=== PATIENT | female | born 1960 | race Caucasian/White ===

== ENCOUNTER → 2017-08-31 12:55 | Outpatient (CLI) | payer OTHER, SELFPAY ==
--- NOTE | 2017-08-31 | DI.MG.S_ITS ---
BILATERAL DIGITAL SCREENING MAMMOGRAM 3D/2D WITH CAD: 08/31/2017 CLINICAL: Routine screening. Family history of breast cancer. Comparison is made to exams dated: 07/11/2016 mammogram, 05/25/2015 mammogram, and 03/10/2014 mammogram - [facility]. The tissue of both breasts is heterogeneously dense. This may lower the sensitivity of mammography. Current study was also evaluated with a Computer Aided Detection (CAD) system. There are post operative findings in both breasts. No significant masses, calcifications, or other findings are seen in either breast. There has been no significant interval change. IMPRESSION: NEGATIVE There is no mammographic evidence of malignancy. A 1 year screening mammogram is recommended. This exam was interpreted at Station ID: [id number]. NOTE: For mammograms, a report in lay terms will be sent to the patient. Approximately 15% of breast malignancies will not be visualized mammographically. In the management of a palpable breast mass, a negative mammogram must not discourage biopsy of a clinically suspicious lesion. Electronically Signed By: Sarkis stein/roger:08/31/2017 15:37:53 letter sent: Normal Exam ACR BI-RADS Category 1: Negative 3341F
== END ==
PROVIDERS: PCP Nurse Practitioner; Visit Provider Family Medicine
DX: Z12.31 Encounter for screening mammogram for malignant neoplasm of breast (principal)
CPT/HCPCS: 77063; 77067

== ENCOUNTER → 2018-03-04 15:47 | Outpatient (CLI) | payer OTHER, SELFPAY ==
[2018-04-01 21:16] LABS: Fecal Immunochemical Test NOT DETECTED
== END ==
PROVIDERS: Visit Provider Family Medicine
DX: Z12.11 Encounter for screening for malignant neoplasm of colon (principal)
CPT/HCPCS: 82274

== ENCOUNTER → 2018-03-29 13:53 | Outpatient (CLI) | payer OTHER, SELFPAY | PROVIDERS: PCP Family Medicine; Visit Provider Family Medicine | DX: Z13.9 Encounter for screening, unspecified (principal) ==

== ENCOUNTER → 2018-10-08 15:18 | Outpatient (CLI) | payer OTHER, SELFPAY ==
--- NOTE | 2018-10-08 | DI.MG.S_ITS ---
BILATERAL DIGITAL SCREENING MAMMOGRAM 3D/2D WITH CAD: 10/08/2018 CLINICAL: Routine screening. Family history of breast cancer. Comparison is made to exams dated: 08/31/2017 mammogram, 07/11/2016 mammogram, and 05/25/2015 mammogram - [facility]. The tissue of both breasts is heterogeneously dense. This may lower the sensitivity of mammography. Current study was also evaluated with a Computer Aided Detection (CAD) system. There are benign post operative findings in both breasts. No significant masses, calcifications, or other findings are seen in either breast. There has been no significant interval change. IMPRESSION: There is no mammographic evidence of malignancy. A 1 year screening mammogram is recommended. This exam was interpreted at Station ID: [id number]. NOTE: For mammograms, a report in lay terms will be sent to the patient. Approximately 15% of breast malignancies will not be visualized mammographically. In the management of a palpable breast mass, a negative mammogram must not discourage biopsy of a clinically suspicious lesion. Electronically Signed By: Benjie figueredo/roger:10/08/2018 16:18:59 letter sent: Normal Exam ACR BI-RADS Category 2: Benign Finding(s) 3342F
== END ==
PROVIDERS: PCP Family Medicine; Visit Provider Family Medicine
DX: Z12.31 Encounter for screening mammogram for malignant neoplasm of breast (principal); Z80.3 Family history of malignant neoplasm of breast
CPT/HCPCS: 77063; 77067

== ENCOUNTER → 2018-10-30 16:29 | Outpatient (RCR) | payer OTHER, SELFPAY ==
--- NOTE | 2017-07-11 13:50 | PT.OIE ---
Current Diagnoses Other specified disorders of muscle (07/10/17) Past Surgical History Status post breast biopsy Status post tubal ligation Provider Visit Care Team Role Provider Type LAYTON Santiago Primary Care Provider Advanced Practioner Clinician Specialty: Medical Address: [address] [place] [address], [id number] Email: Eli Downs MD Attending Provider Physician Specialty: BELT LACER Address: [address] [place] [address], [id number] Email: [email or web address] Physical Therapy Initial Evaluation PT-OP-A Visit Information Start: 07/11/17 13:20 Freq: Status: Active Protocol: Document 07/11/17 13:21 [facility] (Rec: 07/11/17 13:34 [facility] [email or web address]) Out-Patient Physical Therapy Visit Information Visit Information Visit Type Initial Evaluation Visit Start Time 16:00 Visit Stop Time 16:45 Total Visit Minutes 45 Visit Number 1 Number of PUTTY TINTER MAKER Visits 0 Evaluation Information Evaluation Date 07/10/17 PT-OP-B Current Condition Start: 07/11/17 13:20 Freq: Status: Active Protocol: Document 07/11/17 13:21 [facility] (Rec: 07/11/17 13:34 [facility] [email or web address]) Current Condition History of Current Condition Onset Date symptoms began approximately 1 year ago Current Complaints constant pelvic pressure as if sitting on a ball, exercise ability limited History of Current Condition Susi is a 56 year old postmenapausal woman referred with uterine prolapse, she has also recently had a vaginal yeast infection which she is still treating. She has not had any urinary tract infection symptoms and no problems with bowel movements. She has a history of 2 vaginal deliveries with the last delivery she notes that she tore quite a bit., hx of breast biopsy, tubal ligation, and foot surgery Treatment Goals Patient/Caregiver Goals Susi's goals include improving strength of her pelvic floor and decrease pelvic pressure from the uterine prolapse Prior Functional Status Baseline Function- ADL's Independent Baseline Function- Mobility Independent Baseline Function- Recreation/Hobbies the patient liked to run but she has not been able to run or walk greater than 1/2 mile in the past year Current Functional Impairments (Reported) Functional Limitations- Recreation/ limited in walking distance to Hobbies 1/2 mile due to increased pelvic pressure, unable to run PT-OP-C Subjective Start: 07/11/17 13:20 Freq: Status: Active Protocol: Document 07/11/17 13:21 [facility] (Rec: 07/11/17 13:34 [facility] [email or web address]) OP-PT Subjective Patient Comments Patient Comments Susi describes constant pressure from her uterine prolapse that is like sitting on a ball. She notes she is frustrated she is unable to exercise due to her prolapse. She denies any complaints of urinary incontinence or fecal incontinence and reports her bowel movements are normal and daily. PT-OP-I Pelvic Floor Start: 07/11/17 13:34 Freq: Status: Active Protocol: Document 07/11/17 13:35 [facility] (Rec: 07/11/17 13:50 [facility] [email or web address]) Pelvic Floor Assessment Urine Pelvic Floor Surgery No Urinary Symptoms Urge Sensation Other Urinary Symptoms urgency is only on occasion Pelvic Clock Pelvic Clock 12-3 Atrophy Pelvic Clock 3-6 Atrophy Guarding Tightness Pelvic Clock 6-9 Atrophy Guarding Tightness Pelvic Clock 9-12 Atrophy Prolapse Uterine Prolapse Grade 2 Perineal Descent Resting Present Bearing Present SEMG (uV) Baseline 2 10 Second Contraction 10.8 Recruitment Pattern Fair Relaxation Good Holding Fair Stability of Hold Fair SEMG Stability of Rest Good Contraction Ability Voluntary Contraction Weak Manual Muscle Testing Left 2 Manual Muscle Testing Right 2 Manual Muscle Testing Anterior 3 Manual Muscle Testing Posterior 2 Muscle Endurance (Seconds) 5 PT-OP-Q Treatments Start: 07/11/17 13:34 Freq: Status: Active Protocol: Document 07/11/17 13:35 [facility] (Rec: 07/11/17 13:50 [facility] [email or web address]) Therapeutic Exercises Supine Exercises 1 Supine Exercise Name roll outs with theraband Side bilateral Resistance level 1 theraband Reps/Minutes 3 sets of 10 reps Comments hip ER strengthening Neuro Re-Education Treatment Other Activities 1 Details EMG biofeedback with neuro re- education of the levator ani muscle group Reps/Duration 10 second hold time x 10 reps Comments Susi is able to facilitate all parts of her levator ani but the contraction is weak and endurance is at 5 seconds. EMG biofeedback was used to provide visual input and neuro re-education on pelvic floor activation. Susi tolerated this well. PT-OP-T Assessment and Plan Start: 07/11/17 13:34 Freq: Status: Active Protocol: Document 07/11/17 13:35 [facility] (Rec: 07/11/17 13:50 [facility] [email or web address]) Physical Therapy Assessment Rehab Potential Rehabilitation Potential Excellent Evaluation Complexity Number of Personal Factors/Comorbidities 0 Number of Body Systems Impaired 1-2 Clinical Presentation at Evaluation Stable Impairments Impairments Pain Soft Tissue Mobility Strength Tone Other Impairments pelvic organ prolapse with pelvic pressure Goals Four Impairment Susi is unable to walk greater than 1/2 mile due to pelvic pressure Apartment Property Manager Goal (LTG) Improve walking distance to 1 mile or greater without increased complaints of pelvic pressure LTG Duration 8 weeks Three Impairment complaints of pelvic pressure that is constant Snf Goal (LTG) Susi reports decreased complaints of pelvic pressue and no longer feels like she is sitting on a ball. LTG Duration 8 weeks Two Impairment decreased endurance of the pelvic floor Apartment Property Manager Goal (LTG) Improve endurance of the pelvic floor to 10 second hold time in supine and 5 second hold time standing LTG Duration 6 weeks One Impairment decreased strength of the Levator ani musculature Snf Goal (LTG) Improve strength of the pelvic floor to 4/5 or better of all portions of the levator ani with MMT LTG Duration 8 weeks Assessment Summary Assessment Susi presents to physical therapy today with signs and symptoms consistant with pelvic organ prolapse and pelvic floor weakness. She is able to facilitate all parts of her levator ani but is weakest in the lateral and posterior marsh. She is guarded on the left lateral wall and is unable to fully relax to baseline on EMG biofeedback. She has difficulty holding a pelvic floor contraction past 5 seconds. Treatment will emphasis pelvic floor strengthening, body mechanics training to avoid straining, function progression to dynamic upright movements. Susi is a good candidate for PT Physical Therapy Plan Frequency and Duration Frequency of Treatment 1x/Week Duration of Treatment 8 weeks Plan of Care Start Date 07/10/17 Plan of Care End Date 09/04/17 Therapeutic Interventions Therapeutic Interventions Home Exercise Program Neuromuscular Re-education Patient/Caregiver Education Self-Care/Home Management Therapeutic Exercises Modalities Biofeedback Other Therapeutic Interventions neuromuscular electrical stimulation Provider Signature Date
--- NOTE | 2017-07-11 13:53 | PT.OPPOC ---
Current Diagnoses Other specified disorders of muscle (07/10/17) Provider Visit Care Team Role Provider Type LAYTON Santiago Primary Care Provider Advanced Practioner Clinician Specialty: Medical Address: [address] [place] [address], [id number] Email: Eli Downs MD Attending Provider Physician Specialty: AMUSEMENT OR RECREATION CARD CHECKER Address: [address] [place] [address], [id number] Email: [email or web address] Plan Of Care PT-OP-T Assessment and Plan Start: 07/11/17 13:34 Freq: Status: Active Protocol: Document 07/11/17 13:35 [facility] (Rec: 07/11/17 13:50 [facility] [email or web address]) Physical Therapy Assessment Rehab Potential Rehabilitation Potential Excellent Evaluation Complexity Number of Personal Factors/Comorbidities 0 Number of Body Systems Impaired 1-2 Clinical Presentation at Evaluation Stable Impairments Impairments Pain Soft Tissue Mobility Strength Tone Other Impairments pelvic organ prolapse with pelvic pressure Goals Four Impairment Susi is unable to walk greater than 1/2 mile due to pelvic pressure Prison Goal (LTG) Improve walking distance to 1 mile or greater without increased complaints of pelvic pressure LTG Duration 8 weeks Three Impairment complaints of pelvic pressure that is constant Group Cio Goal (LTG) Susi reports decreased complaints of pelvic pressue and no longer feels like she is sitting on a ball. LTG Duration 8 weeks Two Impairment decreased endurance of the pelvic floor Prison Goal (LTG) Improve endurance of the pelvic floor to 10 second hold time in supine and 5 second hold time standing LTG Duration 6 weeks One Impairment decreased strength of the Levator ani musculature Group Cio Goal (LTG) Improve strength of the pelvic floor to 4/5 or better of all portions of the levator ani with MMT LTG Duration 8 weeks Assessment Summary Assessment Susi presents to physical therapy today with signs and symptoms consistant with pelvic organ prolapse and pelvic floor weakness. She is able to facilitate all parts of her levator ani but is weakest in the lateral and posterior marsh. She is guarded on the left lateral wall and is unable to fully relax to baseline on EMG biofeedback. She has difficulty holding a pelvic floor contraction past 5 seconds. Treatment will emphasis pelvic floor strengthening, body mechanics training to avoid straining, function progression to dynamic upright movements. Susi is a good candidate for PT Physical Therapy Plan Frequency and Duration Frequency of Treatment 1x/Week Duration of Treatment 8 weeks Plan of Care Start Date 07/10/17 Plan of Care End Date 09/04/17 Therapeutic Interventions Therapeutic Interventions Home Exercise Program Neuromuscular Re-education Patient/Caregiver Education Self-Care/Home Management Therapeutic Exercises Modalities Biofeedback Other Therapeutic Interventions neuromuscular electrical stimulation Plan of Care Dates Plan of Care Start Date 07/10/17 Plan of Care End Date 09/04/17 Please Sign and Return: I have reviewed this Plan of Care and certify that the skilled therapy services above are required to meet the patient???s needs. Physician Signature Date Printed Name and Credentials
--- NOTE | 2017-07-17 18:00 | PT.OTN ---
Current Diagnoses Other specified disorders of muscle (07/17/17) Physical Therapy Treatment Note PT-OP-A Visit Information Start: 07/11/17 13:20 Freq: Status: Active Protocol: Document 07/11/17 13:21 [facility] (Rec: 07/11/17 13:34 [facility] [email or web address] Out-Patient Physical Therapy Visit Information Visit Information Visit Type Initial Evaluation Visit Start Time 16:00 Visit Stop Time 16:45 Total Visit Minutes 45 Visit Number 1 Number of TEST DEVELOPMENT ENGINEER Visits 0 Evaluation Information Evaluation Date 07/10/17 PT-OP-B Current Condition Start: 07/11/17 13:20 Freq: Status: Active Protocol: Document 07/11/17 13:21 [facility] (Rec: 07/11/17 13:34 [facility] [email or web address] Current Condition History of Current Condition Onset Date symptoms began approximately 1 year ago Current Complaints constant pelvic pressure as if sitting on a ball, exercise ability limited History of Current Condition Susi is a 56 year old postmenapausal woman referred with uterine prolapse, she has also recently had a vaginal yeast infection which she is still treating. She has not had any urinary tract infection symptoms and no problems with bowel movements. She has a history of 2 vaginal deliveries with the last delivery she notes that she tore quite a bit., hx of breast biopsy, tubal ligation, and foot surgery Treatment Goals Patient/Caregiver Goals Susi's goals include improving strength of her pelvic floor and decrease pelvic pressure from the uterine prolapse Prior Functional Status Baseline Function- ADL's Independent Baseline Function- Mobility Independent Baseline Function- Recreation/Hobbies the patient liked to run but she has not been able to run or walk greater than 1/2 mile in the past year Current Functional Impairments (Reported) Functional Limitations- Recreation/ limited in walking distance to Hobbies 1/2 mile due to increased pelvic pressure, unable to run PT-OP-C Subjective Start: 07/11/17 13:20 Freq: Status: Active Protocol: Document 07/17/17 17:53 [facility] (Rec: 07/17/17 18:00 [facility] [email or web address] OP-PT Subjective Patient Comments Patient Comments Susi reports she has been trying to work on her exercises at home. She has not expereincedc pelvic cramin with exercises PT-OP-I Pelvic Floor Start: 07/11/17 13:34 Freq: Status: Active Protocol: Document 07/11/17 13:35 [facility] (Rec: 07/11/17 13:50 [facility] [email or web address]) Pelvic Floor Assessment Urine Pelvic Floor Surgery No Urinary Symptoms Urge Sensation Other Urinary Symptoms urgency is only on occasion Pelvic Clock Pelvic Clock 12-3 Atrophy Pelvic Clock 3-6 Atrophy Guarding Tightness Pelvic Clock 6-9 Atrophy Guarding Tightness Pelvic Clock 9-12 Atrophy Prolapse Uterine Prolapse Grade 2 Perineal Descent Resting Present Bearing Present SEMG (uV) Baseline 2 10 Second Contraction 10.8 Recruitment Pattern Fair Relaxation Good Holding Fair Stability of Hold Fair SEMG Stability of Rest Good Contraction Ability Voluntary Contraction Weak Manual Muscle Testing Left 2 Manual Muscle Testing Right 2 Manual Muscle Testing Anterior 3 Manual Muscle Testing Posterior 2 Muscle Endurance (Seconds) 5 PT-OP-Q Treatments Start: 07/11/17 13:34 Freq: Status: Active Protocol: Document 07/17/17 17:53 [facility] (Rec: 07/17/17 18:00 [facility] [email or web address]) Therapeutic Exercises Supine Exercises 4 Supine Exercise Name templates for eccentric control Reps/Minutes 8 min 3 Supine Exercise Name quick contractions Reps/Minutes 2 seconds on/off 2 Supine Exercise Name pelvic floor long holds Reps/Minutes 10 seconds on 10 seconds off 1 Supine Exercise Name roll outs with theraband Side bilateral Resistance level 1 theraband Reps/Minutes 3 sets of 10 reps Comments hip ER strengthening PT-OP-T Assessment and Plan Start: 07/11/17 13:34 Freq: Status: Active Protocol: Document 07/17/17 17:53 [facility] (Rec: 07/17/17 18:00 [facility] [email or web address]) Physical Therapy Assessment Assessment Summary Assessment Susi is tolerating all exercises well and has not been experiencing any cramping . Begin TA stabilization next visit and gradually work towards standing pelvic floor contractions Physical Therapy Plan Frequency and Duration Frequency of Treatment 1x/Week Duration of Treatment 8 weeks Plan of Care Start Date 07/10/17 Plan of Care End Date 09/04/17 Therapeutic Interventions Therapeutic Interventions Home Exercise Program Neuromuscular Re-education Patient/Caregiver Education Self-Care/Home Management Therapeutic Exercises Next Visit Focus/Plan Next Visit Plan work on beginning transverse abdominal stabilization next visit and revisit templates for eccentric control Please Sign and Return: I have reviewed this Plan of Care and certify that the skilled therapy services above are required to meet the patient???s needs. Physician Signature Date Printed Name and Credentials Clinical Instructor Signature Printed Name and Credentials
--- NOTE | 2017-07-31 17:12 | PT.OTN ---
Current Diagnoses Other specified disorders of muscle (07/31/17) Physical Therapy Treatment Note PT-OP-A Visit Information Start: 07/11/17 13:20 Freq: Status: Active Protocol: Document 07/31/17 17:05 [facility] (Rec: 07/31/17 17:12 [facility] [email or web address]) Out-Patient Physical Therapy Visit Information Visit Information Visit Type Treatment Note Visit Start Time 16:00 Visit Stop Time 16:45 Total Visit Minutes 45 Visit Number 3 Number of PLASTICS BENCH MECHANIC Visits 0 PT-OP-B Current Condition Start: 07/11/17 13:20 Freq: Status: Active Protocol: Document 07/11/17 13:21 [facility] (Rec: 07/11/17 13:34 [facility] [email or web address]) Current Condition History of Current Condition Onset Date symptoms began approximately 1 year ago Current Complaints constant pelvic pressure as if sitting on a ball, exercise ability limited History of Current Condition Susi is a 56 year old postmenapausal woman referred with uterine prolapse, she has also recently had a vaginal yeast infection which she is still treating. She has not had any urinary tract infection symptoms and no problems with bowel movements. She has a history of 2 vaginal deliveries with the last delivery she notes that she tore quite a bit., hx of breast biopsy, tubal ligation, and foot surgery Treatment Goals Patient/Caregiver Goals Susi's goals include improving strength of her pelvic floor and decrease pelvic pressure from the uterine prolapse Prior Functional Status Baseline Function- ADL's Independent Baseline Function- Mobility Independent Baseline Function- Recreation/Hobbies the patient liked to run but she has not been able to run or walk greater than 1/2 mile in the past year Current Functional Impairments (Reported) Functional Limitations- Recreation/ limited in walking distance to Hobbies 1/2 mile due to increased pelvic pressure, unable to run PT-OP-C Subjective Start: 07/11/17 13:20 Freq: Status: Active Protocol: Document 07/31/17 17:05 [facility] (Rec: 07/31/17 17:12 [facility] [email or web address]) OP-PT Subjective Patient Comments Patient Comments Susi notes that at times the exercises feel like they are helping her prolapse symptoms PT-OP-I Pelvic Floor Start: 07/11/17 13:34 Freq: Status: Active Protocol: Document 07/11/17 13:35 [facility] (Rec: 07/11/17 13:50 [facility] [email or web address]) Pelvic Floor Assessment Urine Pelvic Floor Surgery No Urinary Symptoms Urge Sensation Other Urinary Symptoms urgency is only on occasion Pelvic Clock Pelvic Clock 12-3 Atrophy Pelvic Clock 3-6 Atrophy Guarding Tightness Pelvic Clock 6-9 Atrophy Guarding Tightness Pelvic Clock 9-12 Atrophy Prolapse Uterine Prolapse Grade 2 Perineal Descent Resting Present Bearing Present SEMG (uV) Baseline 2 10 Second Contraction 10.8 Recruitment Pattern Fair Relaxation Good Holding Fair Stability of Hold Fair SEMG Stability of Rest Good Contraction Ability Voluntary Contraction Weak Manual Muscle Testing Left 2 Manual Muscle Testing Right 2 Manual Muscle Testing Anterior 3 Manual Muscle Testing Posterior 2 Muscle Endurance (Seconds) 5 PT-OP-Q Treatments Start: 07/11/17 13:34 Freq: Status: Active Protocol: Document 07/31/17 17:05 [facility] (Rec: 07/31/17 17:12 [facility] [email or web address]) Therapeutic Exercises Supine Exercises 7 Supine Exercise Name TA facilitation in supine 6 Supine Exercise Name ball squeeze Reps/Minutes 20 reps 5 Supine Exercise Name clam shells Reps/Minutes 3 sets of 10 reps 4 Supine Exercise Name templates for eccentric control Reps/Minutes 8 min 3 Supine Exercise Name quick contractions Reps/Minutes 2 seconds on/off 2 Supine Exercise Name pelvic floor long holds Reps/Minutes 10 seconds on 10 seconds off Other Exercises 2 Other Exercise Name quadraped TA facilitation 1 Other Exercise Name quadraped cat cow Reps/Minutes 10 reps PT-OP-T Assessment and Plan Start: 07/11/17 13:34 Freq: Status: Active Protocol: Document 07/31/17 17:05 [facility] (Rec: 07/31/17 17:12 [facility] [email or web address]) Physical Therapy Assessment Assessment Summary Assessment great increase in pelvic floor recruitment on EMG biofeedback today with average contraction increasing to 18. 8 uv and max contraction of 30 uv Physical Therapy Plan Frequency and Duration Frequency of Treatment 1x/Week Duration of Treatment 8 weeks Plan of Care Start Date 07/10/17 Plan of Care End Date 09/04/17 Therapeutic Interventions Therapeutic Interventions Home Exercise Program Neuromuscular Re-education Patient/Caregiver Education Self-Care/Home Management Therapeutic Exercises Next Visit Focus/Plan Next Visit Plan continue progressing TA stabilization and work towards strengthening in upright positions Please Sign and Return: I have reviewed this Plan of Care and certify that the skilled therapy services above are required to meet the patient?s needs. Physician Signature Date Printed Name and Credentials Clinical Instructor Signature Printed Name and Credentials
--- NOTE | 2017-08-08 12:51 | PT.OTN ---
Current Diagnoses Other specified disorders of muscle (08/07/17) Physical Therapy Treatment Note PT-OP-A Visit Information Start: 07/11/17 13:20 Freq: Status: Active Protocol: Document 08/07/17 16:00 [facility] (Rec: 08/08/17 12:51 [facility] [email or web address]) Out-Patient Physical Therapy Visit Information Visit Information Visit Type Treatment Note Visit Start Time 14:00 Visit Stop Time 14:45 Total Visit Minutes 45 Visit Number 4 Number of SUPERVISORY IT SPECIALIST Visits 0 PT-OP-B Current Condition Start: 07/11/17 13:20 Freq: Status: Active Protocol: Document 07/11/17 13:21 [facility] (Rec: 07/11/17 13:34 [facility] [email or web address]) Current Condition History of Current Condition Onset Date symptoms began approximately 1 year ago Current Complaints constant pelvic pressure as if sitting on a ball, exercise ability limited History of Current Condition Susi is a 56 year old postmenapausal woman referred with uterine prolapse, she has also recently had a vaginal yeast infection which she is still treating. She has not had any urinary tract infection symptoms and no problems with bowel movements. She has a history of 2 vaginal deliveries with the last delivery she notes that she tore quite a bit., hx of breast biopsy, tubal ligation, and foot surgery Treatment Goals Patient/Caregiver Goals Susi's goals include improving strength of her pelvic floor and decrease pelvic pressure from the uterine prolapse Prior Functional Status Baseline Function- ADL's Independent Baseline Function- Mobility Independent Baseline Function- Recreation/Hobbies the patient liked to run but she has not been able to run or walk greater than 1/2 mile in the past year Current Functional Impairments (Reported) Functional Limitations- Recreation/ limited in walking distance to Hobbies 1/2 mile due to increased pelvic pressure, unable to run PT-OP-C Subjective Start: 07/11/17 13:20 Freq: Status: Active Protocol: Document 08/07/17 16:00 [facility] (Rec: 08/08/17 12:51 [facility] [email or web address]) OP-PT Subjective Patient Comments Patient Comments Susi reports this has been a good week and she has not felt as much pelvic pressure. She want to start walking again PT-OP-I Pelvic Floor Start: 07/11/17 13:34 Freq: Status: Active Protocol: Document 07/11/17 13:35 [facility] (Rec: 07/11/17 13:50 [facility] [email or web address]) Pelvic Floor Assessment Urine Pelvic Floor Surgery No Urinary Symptoms Urge Sensation Other Urinary Symptoms urgency is only on occasion Pelvic Clock Pelvic Clock 12-3 Atrophy Pelvic Clock 3-6 Atrophy Guarding Tightness Pelvic Clock 6-9 Atrophy Guarding Tightness Pelvic Clock 9-12 Atrophy Prolapse Uterine Prolapse Grade 2 Perineal Descent Resting Present Bearing Present SEMG (uV) Baseline 2 10 Second Contraction 10.8 Recruitment Pattern Fair Relaxation Good Holding Fair Stability of Hold Fair SEMG Stability of Rest Good Contraction Ability Voluntary Contraction Weak Manual Muscle Testing Left 2 Manual Muscle Testing Right 2 Manual Muscle Testing Anterior 3 Manual Muscle Testing Posterior 2 Muscle Endurance (Seconds) 5 PT-OP-Q Treatments Start: 07/11/17 13:34 Freq: Status: Active Protocol: Document 08/07/17 16:00 [facility] (Rec: 08/08/17 12:51 [facility] [email or web address]) Therapeutic Exercises Supine Exercises 7 Supine Exercise Name TA facilitation in supine 6 Supine Exercise Name ball squeeze Reps/Minutes 20 reps 5 Supine Exercise Name clam shells Reps/Minutes 3 sets of 10 reps 4 Supine Exercise Name templates for eccentric control Reps/Minutes 8 min 3 Supine Exercise Name quick contractions Reps/Minutes 2 seconds on/off Comments improved resting tone 2 Supine Exercise Name pelvic floor long holds Reps/Minutes 10 seconds on 10 seconds off 1 Supine Exercise Name roll outs with theraband Side bilateral Resistance level 1 theraband Reps/Minutes 3 sets of 10 reps Comments hip ER strengthening Other Exercises 4 Other Exercise Name functional squats with pelvic floor activation 3 Other Exercise Name standing and sidelying hip abduction Reps/Minutes 2 x 10 2 Other Exercise Name quadraped TA facilitation 1 Other Exercise Name quadraped cat cow Reps/Minutes 10 reps PT-OP-T Assessment and Plan Start: 07/11/17 13:34 Freq: Status: Active Protocol: Document 08/07/17 16:00 [facility] (Rec: 08/08/17 12:51 [facility] [email or web address]) Physical Therapy Assessment Assessment Summary Assessment good tolerance today for addition of standing exercises and hip lateral strengthning Physical Therapy Plan Frequency and Duration Frequency of Treatment 1x/Week Duration of Treatment 8 weeks Plan of Care Start Date 07/10/17 Plan of Care End Date 09/04/17 Therapeutic Interventions Therapeutic Interventions Home Exercise Program Neuromuscular Re-education Patient/Caregiver Education Self-Care/Home Management Therapeutic Exercises Next Visit Focus/Plan Next Visit Plan continue progressing TA stabilization and work towards strengthening in upright positions Please Sign and Return: I have reviewed this Plan of Care and certify that the skilled therapy services above are required to meet the patient?s needs. Physician Signature Date Printed Name and Credentials Clinical Instructor Signature Printed Name and Credentials
--- NOTE | 2018-10-29 14:16 | PT.OPDS ---
Current Diagnoses Other specified disorders of muscle (08/14/17) Visit Care Team Role Provider Type LAYTON Santiago Primary Care Provider Advanced Community Integration Specialist Specialty: Medical Address: [address] [place] [address], [id number] Email: Eli Downs MD Attending Provider Physician Specialty: ADMINISTRATIVE LIBRARY ASSISTANT Address: [address] [place] [address], [id number] Email: [email or web address] Visit Number Visit Number 5 Discharge Summary PT-OP-B Current Condition Start: 07/11/17 13:20 Freq: Status: Active Protocol: Document 07/11/17 13:21 [facility] (Rec: 07/11/17 13:34 [facility] [email or web address]) Current Condition History of Current Condition Onset Date symptoms began approximately 1 year ago Current Complaints constant pelvic pressure as if sitting on a ball, exercise ability limited History of Current Condition Susi is a 56 year old postmenapausal woman referred with uterine prolapse, she has also recently had a vaginal yeast infection which she is still treating. She has not had any urinary tract infection symptoms and no problems with bowel movements. She has a history of 2 vaginal deliveries with the last delivery she notes that she tore quite a bit., hx of breast biopsy, tubal ligation, and foot surgery Treatment Goals Patient/Caregiver Goals Susi's goals include improving strength of her pelvic floor and decrease pelvic pressure from the uterine prolapse Prior Functional Status Baseline Function- ADL's Independent Baseline Function- Mobility Independent Baseline Function- Recreation/Hobbies the patient liked to run but she has not been able to run or walk greater than 1/2 mile in the past year Current Functional Impairments (Reported) Functional Limitations- Recreation/ limited in walking distance to Hobbies 1/2 mile due to increased pelvic pressure, unable to run PT-OP-C Subjective Start: 07/11/17 13:20 Freq: Status: Active Protocol: Document 08/14/17 17:00 [facility] (Rec: 08/14/17 17:06 [facility] [email or web address]) OP-PT Subjective Patient Comments Patient Comments Susi reports she has had another week where the pelvic pressure has been decreased overall. She was sick this week so didn't start walking but plans on beginning walking soon PT-OP-I Pelvic Floor Start: 07/11/17 13:34 Freq: Status: Active Protocol: Document 07/11/17 13:35 [facility] (Rec: 07/11/17 13:50 [facility] [email or web address]) Pelvic Floor Assessment Urine Pelvic Floor Surgery No Urinary Symptoms Urge Sensation Other Urinary Symptoms urgency is only on occasion Pelvic Clock Pelvic Clock 12-3 Atrophy Pelvic Clock 3-6 Atrophy,Guarding,Tightness Pelvic Clock 6-9 Atrophy,Guarding,Tightness Pelvic Clock 9-12 Atrophy Prolapse Uterine Prolapse Grade 2 Perineal Descent Resting Present Bearing Present SEMG (uV) Baseline 2 10 Second Contraction 10.8 Recruitment Pattern Fair Relaxation Good Holding Fair Stability of Hold Fair SEMG Stability of Rest Good Contraction Ability Voluntary Contraction Weak Manual Muscle Testing Left 2 Manual Muscle Testing Right 2 Manual Muscle Testing Anterior 3 Manual Muscle Testing Posterior 2 Muscle Endurance (Seconds) 5 PT-OP-T Assessment and Plan Start: 07/11/17 13:34 Freq: Status: Active Protocol: Document 10/29/18 14:15 [facility] (Rec: 10/29/18 14:16 [facility] [email or web address]) Physical Therapy Plan Discharge Physical Therapy Discharge Reasons No Longer Attending PT Discharge Comments Susi has not been seen since August 14. I would be happy to continue care for Susi in the future should she need any further therapy. As of her last visit on she was making progress and demonstrated improved pelvic floor strength
== END | disposition home or self-care (01) ==
LOC: PHYS 07-10 15:42
PROVIDERS: PCP Nurse Practitioner; Visit Provider Specialist
DX: M62.89 Other specified disorders of muscle (principal)
CPT/HCPCS: 97110; 97112; 97161

== ENCOUNTER → 2020-01-20 10:00 | Outpatient (CLI) | payer OTHER, SELFPAY ==
--- NOTE | 2020-01-20 | DI.MG.S_ITS ---
BILATERAL DIGITAL SCREENING MAMMOGRAM 3D/2D WITH CAD: 01/20/2020 CLINICAL: Routine screening. Family history of breast cancer. Comparison is made to exams dated: 10/08/2018 mammogram, 08/31/2017 mammogram, and 07/11/2016 mammogram - [facility]. The tissue of both breasts is heterogeneously dense. This may lower the sensitivity of mammography. Current study was also evaluated with a Computer Aided Detection (CAD) system. There are benign post operative findings in both breasts. No significant masses, calcifications, or other findings are seen in either breast. There has been no significant interval change. IMPRESSION: BENIGN There is no mammographic evidence of malignancy. A 1 year screening mammogram is recommended. This exam was interpreted at Station ID: [id number]. NOTE: For mammograms, a report in lay terms will be sent to the patient. Approximately 15% of breast malignancies will not be visualized mammographically. In the management of a palpable breast mass, a negative mammogram must not discourage biopsy of a clinically suspicious lesion. Electronically Signed By: Alan hodges/roger:01/20/2020 16:20:55 letter sent: Normal Exam ACR BI-RADS Category 2: Benign Finding(s) 3342F
== END ==
PROVIDERS: PCP Family Medicine; Referring Provider Family Medicine; Visit Provider Family Medicine
DX: Z12.31 Encounter for screening mammogram for malignant neoplasm of breast (principal); Z80.3 Family history of malignant neoplasm of breast
CPT/HCPCS: 77063; 77067

== ENCOUNTER 2020-05-29 22:03 | Emergency (ER) | payer OTHER, SELFPAY ==
[2020-05-29 22:19] VITALS: BP 140/64; PULSE 73; RESP 17; TEMP 37.2; O2SAT 98; BMI 23.3
--- NOTE | 2020-05-29 22:27 | DI.RAD.S_ITS ---
PROCEDURE: XR CHEST 2V INDICATIONS: SOB TECHNIQUE: 2 views of the chest were acquired. COMPARISON: [facility], , CHEST 2 VIEW, 06/12/2009, 2:40. FINDINGS: Surgical changes and devices: None. Lungs and pleura: Lungs are clear. Slight blunting of the right posterior costophrenic sulcus. No pneumothorax. Mediastinum: Mediastinal contours are normal. Heart size is normal. Bones and chest wall: No suspicious bony abnormalities. Soft tissues appear unremarkable. IMPRESSION: Slight blunting of the right posterior costophrenic sulcus which may be attributable to atelectasis and/or a trace pleural effusion. Otherwise, no acute findings. Dictated by: Minesh Zapata M.D. on 05/29/2020 at 22:16 Approved by: Minesh Zapata M.D. on 05/29/2020 at 22:19
[2020-05-29] MEDS: KETOROLAC 60 MG/2 ML VIAL 15 MG IV (22:41)
[2020-05-29 22:51] LABS: Add Manual Diff / Slide Review NO; Basophils Absolute Auto 100 /uL (0-100); Basophils Percent Auto 0.9 % (0-2); Eosinophils Absolute Auto 300 /uL (0-450); Hematocrit 40.3 % (36-46); Hemoglobin 13.5 g/dL (12.0-16.0); Lymphocytes Absolute Auto 2300 /uL (1100-4500); Lymphocytes Percent Auto 26.4 % (25-40); Mean Corpuscular HGB Conc 33.4 % (30-36); Mean Corpuscular Volume 95.7 fL (80-100); Monocytes Absolute Auto 600 /uL (0-900); Monocytes Percent Auto 6.7 % (3-14); Neutrophils Absolute Auto 5300 /uL (1500-7000); Platelet Count 266 X10^3/uL (150-400); Red Blood Cell Count 4.21 X10^6/uL (4.0-5.2); Red Cell Distribution Width 12.6 % (11.6-14.8); White Blood Cell Count 8.6 X10^3/uL (4.5-11.0)
[2020-05-29 23:01] LABS: BUN Creatinine Ratio 17.5 (6-22); Blood Urea Nitrogen 14 mg/dL (7-17); Calcium 9.5 mg/dL (8.4-10.2); Carbon Dioxide 26 mmol/L (22-32); Chloride 106 mmol/L (98-107); Estimated Glomerular Filt Rate > 60.0 mL/min (>60); Glucose 85 mg/dL (70-100); HEMOLYSIS < 15 (0-50); Potassium 4.2 mmol/L (3.4-5.1); Sodium 142 mmol/L (137-145)
--- NOTE | 2020-05-29 23:23 | ED.ABDPAIN ---
HPI - Abdominal Pain General Chief Complaint: Abdominal Pain Stated Complaint: left side flank pain, since Sunday Time Seen by Provider: 05/29/20 22:07 Source: patient Mode of arrival: Ambulatory Limitations: no limitations History of Present Illness HPI narrative: 59-year-old female daily smoker with history of recent course of antibiotics for dental infection presents with her significant other and a chief complaint of left lateral rib pain upon waking a few days ago. She states her pain is sharp and stabbing and wraps around her left lower ribs. Her pain is worse when she moves and improves with rest. She denies any injury or overuse. She denies any runny nose, sore throat or cough. She denies any shortness of breath. She has had no nausea, vomiting or diarrhea. She denies dysuria, frequency or urgency. She has had no rash or other. MD complaint: flank pain Onset (ago): day(s) Pain Consistency: constant Location: L flank Severity: moderate Quality: stabbing and sharp Radiation: L flank Migration to: no migration Relieving factors: nothing Exacerbating factors: movement Associated symptoms: denies other symptoms Related Data Previous Rx's Medication Instructions Recorded conjugated estrogens 0.625 mg/gram 1 applictn TOPICAL QPM #30 gram 06/26/18 vaginal cream cyclobenzaprine 5 mg PO BEDTIME PRN #10 tab 05/29/20 ketorolac 10 mg PO Q6H PRN #14 tab 05/29/20 Allergies Allergy/AdvReac Type Severity Reaction Status Date / Time tetanus and diphtheria Allergy Severe Anaphylaxis Verified 06/26/18 15:54 toxoids [TETANUS & DIPHTHERIA TOXOIDS] Review of Systems Constitutional Constitutional: Denies chills, Denies fatigue, Denies fever(s), Denies frequent falls, Denies lethargy and Denies weakness Eyes Eyes: Denies change in vision, Denies eye discharge, Denies irritation and Denies loss of vision ENT Ears, Nose, Mouth, and Throat: Denies change in voice, Denies dizziness, Denies neck pain, Denies sore throat and Denies throat swelling Cardiovascular Cardiovascular: Denies chest pain, Denies irregular heart rhythm, Denies lightheadedness, Denies palpitations, Denies dyspnea, Denies dyspnea on exertion and Denies orthopnea Comments: lateral chest wall pain Respiratory Respiratory: Denies cough, Denies dyspnea, Denies dyspnea on exertion and Denies wheezing Gastrointestinal Gastrointestinal: Denies abdominal pain, Denies change in bowel habits, Denies diarrhea, Denies nausea and Denies vomiting Musculoskeletal Musculoskeletal: Denies neck pain and Denies numbness Integumentary/Breasts Skin/Breast: Denies pruritus, Denies erythema, Denies rash and Denies wounds Neurologic Neurologic: Denies behavioral changes, Denies confusion, Denies dizziness, Denies frequent falls, Denies loss of vision, Denies numbness and Denies weakness Psychiatric Psychiatric: Denies anxiety, Denies behavioral changes, Denies confusion, Denies depression, Denies homicidal ideation and Denies suicidal ideation Endocrine Endocrine: Denies fatigue, Denies flushing and Denies palpitations Hematologic/Lymphatic Hematologic/Lymphatic: Denies easy bruising Allergic/Immunologic Allergic/Immunologic: Denies urticaria, Denies throat swelling and Denies wheezing Patient History Medical History Chicken pox Hearing deficit Plantar warts Uterine prolapse (~2016) Vision disorder Surgical History Anesthesia History of surgery Status post breast biopsy Status post tubal ligation (~1987) Family History Grandmother Diabetes mellitus Mother Age: 75 Breast cancer Uterine cancer Diabetes mellitus Hypertension Social History marital status: number of children: 2 household members: spouse lives independently: Yes caregiver/support person: No housing: house occupational status: employed Smoking Status: Current every day smoker quit status: considering quitting second hand exposure: No alcohol intake: current substance use type: does not use Smoking Status: Current every day smoker alcohol intake frequency: 0-2 drinks per day Substance Use Type: does not use Exam Narrative Exam Narrative: GENERAL: [59] year old patient appears stated age. Well-nourished, well-developed patient, in obvious pain, moving slowly and rubbing her left flank HEAD: Atraumatic. Normocephalic. EYES: Pupils equal round and reactive. Extraocular motions intact. No scleral icterus. No injection or drainage. ENT: Nose without bleeding, purulent drainage. Throat without erythema, tonsillar hypertrophy or exudate. Airway patent. NECK: Trachea midline. Non tender CARDIOVASCULAR: Regular rate and rhythm without murmurs, gallops, or rubs. Left lateral ribs painful to palpation, radiates around her side, pain only on the ribs and not in the costovertebral angle or upper abdomen RESPIRATORY: Clear to auscultation. Breath sounds equal bilaterally. No wheezes, rales, or rhonchi. GASTROINTESTINAL: Abdomen soft, non-tender, nondistended. EXTREMITIES: No edema or joint tenderness. BACK: Nontender without deformity or crepitance. No flank tenderness. NEURO: AOx3. SKIN: No rash or erythema of visible areas. Short lifted in no rash on left flank (shingles considered) Initial Vital Signs Initial Vital Signs: Vital Signs Temperature 98.9 F 05/29/20 22:19 Pulse Rate 73 05/29/20 22:19 Respiratory Rate 17 05/29/20 22:19 Blood Pressure 140/64 05/29/20 22:19 Pulse Oximetry 98 05/29/20 22:19 Course Orders Ordered: ED Orders 05/29/20 22:27 XR chest 2V Stat 05/29/20 22:43 Basic Metabolic Panel Stat Complete Blood Count AUTO DIFF Stat Discontinued Medications Cyclobenzaprine HCl (Cyclobenzaprine 10 Mg Prepack) 1 bottle MISC SEEINSTR ONE Stop: 05/29/20 23:32 Last Admin: 05/29/20 23:36 Dose: 1 bottle Documented by: Ketorolac Tromethamine (Ketorolac 60 Mg/2 Ml Vial) 15 mg IV NOW ONE Stop: 05/29/20 22:27 Last Admin: 05/29/20 22:41 Dose: 15 mg Documented by: LIZZY Reevaluation(s) Reevaluation #1: significant improvement after use of toradol. Vital Signs Vital signs: Vital Signs - 8 hr 05/29/20 22:19 05/29/20 23:39 Temperature 98.9 F Pulse Rate 73 63 Respiratory Rate 17 16 Blood Pressure 140/64 130/77 Pulse Oximetry 98 98 MDM - Abdominal Pain Lab Data Result diagrams: 05/29/20 22:43 05/29/20 22:43 Labs: Lab Results 05/29/20 05/29/20 Range/Units 22:43 22:43 WBC 8.6 (4.5-11.0) X10^3/uL RBC 4.21 (4.0-5.2) X10^6/uL Hgb 13.5 (12.0-16.0) g/dL Hct 40.3 (36-46) % MCV 95.7 (80-100) fL MCH 32.0 (26-34) PG MCHC 33.4 (30-36) % RDW 12.6 (11.6-14.8) % Plt Count 266 (150-400) X10^3/uL Neut % (Auto) 62.0 (50-75) % Lymph % (Auto) 26.4 (25-40) % [place] % (Auto) 6.7 (3-14) % Eos % (Auto) 4.0 (2-4) % Baso % (Auto) 0.9 (0-2) % Neut # (Auto) 5300 (2218-7852) /uL Lymph # (Auto) 2300 (9158-7961) /uL [place] # (Auto) 600 (0-900) /uL Eos # (Auto) 300 (0-450) /uL Baso # (Auto) 100 (0-100) /uL Sodium 142 (137-145) mmol/L Potassium 4.2 (3.4-5.1) mmol/L Chloride 106 (98-107) mmol/L Carbon Dioxide 26 (22-32) mmol/L BUN 14 (7-17) mg/dL Creatinine 0.80 (0.52-1.04) mg/dL Estimated GFR > 60.0 (>60) mL/min BUN/Creatinine Ratio 17.5 (6-22) Glucose 85 (70-100) mg/dL Calcium 9.5 (8.4-10.2) mg/dL Point of care testing: Urine Dip Bedside Urine Glucose Negative Bedside Urine Bilirubin - Negative Bedside Urine Ketone - Negative Urine Specific [place] 1.025 Bedside Urine Occult Blood - Negative Bedside Urine pH 6.0 Bedside Urine Protein - Negative Bedside Urine Urobilinogen - Negative Bedside Urine Nitrite - Negative Bedside Urine Leukocytes - Negative Esterase Imaging Data Chest x-ray: Radiologist's Impression: Chart Viewer Diagnostics DATE TYPE STATUS REF RANGE/AUTHOR Hx Today 22:27 Minesh Zapata 01/20/20 00:00 Alan Aly 10/08/18 00:00 Benjie Hare 08/31/17 00:00 StewartNabeelUriSusi Bonilla 59, F1 [facility] ER, Main ED 165.1cm 63.503kg BMI: 23.3kg/m? Abdominal Pain Search Chart No Data to Display Anaphylaxis ONSET Today 23:39 Susi Arias 59 F [address] [address]SZmt ReportSigned Patient: Susi Arias LMR#: [id number]: 1960Acct:[id number]/Sex: 59 / FDate of Service: 05/29/20Loc: EDAccession Number: [id number] Procedure: XR chest 2V Ordering Provider: Ramses Mckeon D.O. PROCEDURE: XR CHEST 2V INDICATIONS: SOB TECHNIQUE: 2 views of the chest were acquired. COMPARISON: [facility], CHEST 2 VIEW, 06/12/2009, 2:40. FINDINGS: Surgical changes and devices: None. Lungs and pleura: Lungs are clear. Slight blunting of the right posterior costophrenic sulcus. No pneumothorax. Mediastinum: Mediastinal contours are normal. Heart size is normal. Bones and chest wall: No suspicious bony abnormalities. Soft tissues appear unremarkable. IMPRESSION: Slight blunting of the right posterior costophrenic sulcus which may be attributable to atelectasis and/or a trace pleural effusion. Otherwise, no acute findings. Dictated by: Minesh Zapata M.D. on 05/29/2020 at 22:16 Approved by: Minesh Zapata M.D. on 05/29/2020 at 22:19 [facility] Narrative Medical decision making narrative: Multiple etiologies for patient's symptoms considered including: [Kidney stone versus pyelonephritis versus pneumonia versus shingles versus GI problem versus musculoskeletal versus other] Patient's symptoms improved over duration of stay with above-stated therapies. Findings and discharge diagnosis discussed with patient/family followed by verbalization of understanding Return precautions discussed with patient/family whom verbalize understanding. Discharge Plan Departure Patient Disposition: Home Clinical Impression: Acute chest wall pain Instructions: DI for Atypical Chest Pain Activity Restrictions/Additional Instructions: *You have been diagnosed with [left lower lateral rib pain, very reassuring story, exam, labs and chest x-ray.] *What to do: *Take medications as directed: [facility] *Follow up with your primary care provider in 2-3 days, call for an appointment. Let them know you were seen in the Emergency Department and that we ask that you be seen in follow up *Return to ER if you should have any new, worsening or concerning symptoms, such as [worsening pain, shortness of breath, fever greater than 101 F] Prescriptions: New ketorolac 10 mg tablet 10 mg PO Q6H PRN (Reason: pain) Qty: 14 RF: 0 cyclobenzaprine 5 mg tablet 5 mg PO BEDTIME PRN (Reason: muscle spasm) Qty: 10 RF: 0 No Action conjugated estrogens 0.625 mg/gram cream 1 applictn topical QPM Qty: 30 RF: 0 Referrals: Betsy Carrillo MD [Primary Care Provider] -
[2020-05-29] MEDS: CYCLOBENZAPRINE 10 MG PREPACK 1 BOTTLE MISC (23:36)
[2020-05-29 23:39] VITALS: BP 130/77; PULSE 63; RESP 16; O2SAT 98
== END 2020-05-29 23:41 | disposition home or self-care (01) ==
PROVIDERS: Emergency Provider Emergency Medicine; PCP Family Medicine
DX: R07.89 Other chest pain (principal)
CPT/HCPCS: 36415; 71046; 80048; 81003; 85025; 96374; 99284; J1885

== ENCOUNTER 2020-09-04 13:47 | Emergency (ER) | payer OTHER, SELFPAY ==
[2020-09-04] VITALS (8 sets, daily range): BP systolic 136–175; BP diastolic 76–94; PULSE 63–76; RESP 18–21; TEMP 37.1; O2SAT 98–100; BMI 23.3
[2020-09-04 14:38] LABS: Add Manual Diff / Slide Review NO; Basophils Absolute Auto 100 /uL (0-100); Basophils Percent Auto 0.8 % (0-2); Eosinophils Absolute Auto 100 /uL (0-450); Eosinophils Percent Auto 1.6 % (2-4); Hematocrit 41.2 % (36-46); Hemoglobin 14.2 g/dL (12.0-16.0); Lymphocytes Absolute Auto 2200 /uL (1100-4500); Lymphocytes Percent Auto 25.2 % (25-40); Mean Corpuscular HGB Conc 34.3 % (30-36); Mean Corpuscular Hemoglobin 32.5 PG (26-34); Mean Corpuscular Volume 94.7 fL (80-100); Monocytes Absolute Auto 600 /uL (0-900); Monocytes Percent Auto 6.3 % (3-14); Neutrophils Absolute Auto 5800 /uL (1500-7000); Neutrophils Percent Auto 66.1 % (50-75); Platelet Count 263 X10^3/uL (150-400); Red Blood Cell Count 4.35 X10^6/uL (4.0-5.2); Red Cell Distribution Width 12.5 % (11.6-14.8); White Blood Cell Count 8.8 X10^3/uL (4.5-11.0)
[2020-09-04 14:45] LABS: Alanine Aminotransferase 19 IU/L (<35); Albumin 4.6 g/dL (3.5-5.0); Albumin Globulin Ratio 1.5 (1.0-2.8); Alkaline Phosphatase 68 U/L (38-126); Aspartate Aminotransferase 29 IU/L (14-36); BUN Creatinine Ratio 17.6 (6-22); Bilirubin Total 0.7 mg/dL (0.2-1.3); Blood Urea Nitrogen 15 mg/dL (7-17); Carbon Dioxide 27 mmol/L (22-32); Chloride 105 mmol/L (98-107); Estimated Glomerular Filt Rate > 60.0 mL/min (>60); Glucose 99 mg/dL (70-100); HEMOLYSIS < 15 (0-50); Lipase 103 U/L (23-300); Potassium 4.2 mmol/L (3.4-5.1); Sodium 138 mmol/L (137-145); Total Protein 7.6 g/dL (6.3-8.2)
--- NOTE | 2020-09-04 15:55 | DI.US.S_ITS ---
PROCEDURE: US PELVIC COMPLETE INDICATIONS: stretcher and pain TECHNIQUE: Real-time scanning was performed of the pelvic organs, with image documentation. Additional endovaginal scanning was necessary due to incomplete visualization of the adnexal and endometrial structures by transabdominal scanning. COMPARISON: [facility], , PELVIC COMPLETE, 04/20/2015, 8:37. FINDINGS: Uterus: Uterus is normal in size at 5.7 x 2.8 x 2.2 cm. The endometrium measures 2-3 mm in combined thickness. Along the cervical canal, there is a focus with calcification and increased vascularity that measures 1.2 x 1.2 x 1.8 cm. Ovaries: Neither ovary is well seen. Other: No pathologic free abdominal or pelvic fluid. IMPRESSION: Focus of apparent calcification increased vascularity seen involving the cervical canal that measures up to 1.8 cm. Please consider neoplasm. When clinically appropriate, gynecology consultation is recommended. The endometrial stripe is not abnormally thickened on these images. Dictated by: Aristeo Aguirre M.D. on 09/04/2020 at 16:19 Approved by: Aristeo Aguirre M.D. on 09/04/2020 at 16:21
--- NOTE | 2020-09-04 16:16 | ED_ITS ---
HPI - Abdominal Pain General Chief Complaint: Abdominal Pain Stated Complaint: Really Bad Pelvic Pain, Sent From [facility] Time Seen by Provider: 09/04/20 15:13 Source: patient Mode of arrival: Ambulatory Limitations: no limitations History of Present Illness HPI narrative: Patient is a 59-year-old female who presents with increasing pelvic pain and pressure. She says that she has unknown prolapse but this feels completely different. She was taking Tylenol and ibuprofen for pain but that is no longer helping. She denies any vaginal bleeding or discharge. Although she did take Monistat to see if that would help. It has not. She denies any painful or frequent urination. Related Data Previous Rx's Medication Instructions Recorded conjugated estrogens 0.625 mg/gram 1 applictn TOPICAL QPM #30 gram 06/26/18 vaginal cream meloxicam 15 mg tablet 15 mg PO DAILY #30 tab 09/04/20 Allergies Allergy/AdvReac Type Severity Reaction Status Date / Time tetanus and diphtheria Allergy Severe Anaphylaxis Verified 09/04/20 14:04 toxoids [TETANUS & DIPHTHERIA TOXOIDS] Review of Systems Review of Systems Narrative: GENERAL: Denies chills, fatigue, malaise, fever, sweats, travel HEENT: Denies sinus pain, ear pain, sore throat, difficulty swallowing, neck pain RESPIRATORY: Denies dyspnea, cough, wheezing, hemoptysis, sputum. CARDIOVASCULAR: Denies chest pain, palpitations, orthopnea, edema GASTROINTESTINAL: Denies nausea, vomiting, abdominal pain, diarrhea, constipation, melena. CHILD ATTENDANT: See HPI : Denies dysuria, frequency, incontinence, hematuria, urinary retention, flank pain. MUSCULOSKELETAL: Denies weakness, joint pain, or bony pain SKIN: No rash, no erythema, no pruritus NEUROLOGIC: Denies weakness, dizziness, headache, numbness, change in speech, confusion PSYCHIATRIC: No concerning psychosocial issues. 12 point review of systems is negative except for those stated above and HPI Patient History Medical History (Updated 09/04/20 @ 17:55 by Gabriela Iraheta DO) Chicken pox Hearing deficit Plantar warts Uterine prolapse (~2016) Vision disorder Surgical History Anesthesia History of surgery Status post breast biopsy Status post tubal ligation (~1987) Family History Grandmother Diabetes mellitus Mother Age: 76 Breast cancer Uterine cancer Diabetes mellitus Hypertension Social History marital status: number of children: 2 household members: spouse lives independently: Yes caregiver/support person: No housing: house occupational status: employed Smoking Status: Current every day smoker quit status: considering quitting second hand exposure: No alcohol intake: current substance use type: does not use Smoking Status: Current every day smoker alcohol intake frequency: 0-2 drinks per day Substance Use Type: does not use Exam Initial Vital Signs Initial Vital Signs: Vital Signs Pulse Rate 75 09/04/20 13:59 Pulse Oximetry 100 09/04/20 13:59 GENERAL: Well-appearing, well-nourished and in no acute distress. HEENT: Head atraumatic,EOMI, pupils reactive CARDIOVASCULAR: Regular rate and rhythm without murmurs, rubs or gallops. RESPIRATORY: Breath sounds equal bilaterally, no wheezes rales or rhonchi. ABDOMEN: Soft, nontender. Normoactive bowel sounds all 4 quadrants. No guarding or rebound. PELVIC: External genitalia is normal, no vaginal bleeding, no vaginal discharge, no odor, cervical os is closed, no adnexal tenderness : No CVA tenderness EXTREMITIES: Normal range of motion, no clubbing or edema. Neurovascularly intact NEUROLOGICAL: Alert and oriented x4 SKIN: Warm, dry, no laceration, no petechiae, no rashes or lesions. Course Orders Ordered: ED Orders 09/04/20 14:26 Complete Blood Count AUTO DIFF Stat Comprehensive Metabolic Panel Stat Lipase Stat 09/04/20 15:55 US pelvic complete Stat Vital Signs Vital signs: Vital Signs - 8 hr 09/04/20 13:59 09/04/20 14:00 09/04/20 14:04 Temperature 98.8 F Pulse Rate 75 75 76 Respiratory Rate 21 Blood Pressure 175/94 H Pulse Oximetry 100 100 100 09/04/20 14:28 09/04/20 14:30 09/04/20 15:00 Temperature Pulse Rate 67 65 63 Respiratory Rate Blood Pressure 155/83 H 147/83 H 138/81 Pulse Oximetry 99 99 99 09/04/20 15:30 Temperature Pulse Rate 64 Respiratory Rate Blood Pressure 136/76 Pulse Oximetry 100 MDM - Abdominal Pain Lab Data Result diagrams: 09/04/20 14:26 09/04/20 14:26 Labs: Lab Results 09/04/20 09/04/20 Range/Units 14:26 14:26 WBC 8.8 (4.5-11.0) X10^3/uL RBC 4.35 (4.0-5.2) X10^6/uL Hgb 14.2 (12.0-16.0) g/dL Hct 41.2 (36-46) % MCV 94.7 (80-100) fL MCH 32.5 (26-34) PG MCHC 34.3 (30-36) % RDW 12.5 (11.6-14.8) % Plt Count 263 (150-400) X10^3/uL Neut % (Auto) 66.1 (50-75) % Lymph % (Auto) 25.2 (25-40) % [place] % (Auto) 6.3 (3-14) % Eos % (Auto) 1.6 L (2-4) % Baso % (Auto) 0.8 (0-2) % Neut # (Auto) 5800 (2496-5988) /uL Lymph # (Auto) 2200 (8888-0073) /uL [place] # (Auto) 600 (0-900) /uL Eos # (Auto) 100 (0-450) /uL Baso # (Auto) 100 (0-100) /uL Sodium 138 (137-145) mmol/L Potassium 4.2 (3.4-5.1) mmol/L Chloride 105 (98-107) mmol/L Carbon Dioxide 27 (22-32) mmol/L BUN 15 (7-17) mg/dL Creatinine 0.85 (0.52-1.04) mg/dL Estimated GFR > 60.0 (>60) mL/min BUN/Creatinine Ratio 17.6 (6-22) Glucose 99 (70-100) mg/dL Calcium 10.0 (8.4-10.2) mg/dL Total Bilirubin 0.7 (0.2-1.3) mg/dL AST 29 (14-36) IU/L ALT 19 (<35) IU/L Alkaline Phosphatase 68 (38-126) U/L Total Protein 7.6 (6.3-8.2) g/dL Albumin 4.6 (3.5-5.0) g/dL Globulin 3.0 (1.7-4.1) g/dL Albumin/Globulin Ratio 1.5 (1.0-2.8) Lipase 103 (23-300) U/L Point of care testing: Urine Dip Bedside Urine Glucose Negative Bedside Urine Bilirubin - Negative Bedside Urine Ketone - Negative Urine Specific [place] 1.030 Bedside Urine Occult Blood - Negative Bedside Urine pH 6.0 Bedside Urine Protein - Negative Bedside Urine Urobilinogen - Negative Bedside Urine Nitrite - Negative Bedside Urine Leukocytes - Negative Esterase Imaging Data US - CHILD ATTENDANT: Radiologist's Impression: PROCEDURE: US PELVIC COMPLETE INDICATIONS: stretcher and pain TECHNIQUE: Real-time scanning was performed of the pelvic organs, with image documentation. Additional endovaginal scanning was necessary due to incomplete visualization of the adnexal and endometrial structures by transabdominal scanning. COMPARISON: [facility], US, PELVIC COMPLETE, 04/20/2015, 8:37. FINDINGS: Uterus: Uterus is normal in size at 5.7 x 2.8 x 2.2 cm. The endometrium measures 2-3 mm in combined thickness. Along the cervical canal, there is a focus with calcification and increased vascularity that measures 1.2 x 1.2 x 1.8 cm. Ovaries: Neither ovary is well seen. Other: No pathologic free abdominal or pelvic fluid. IMPRESSION: Focus of apparent calcification increased vascularity seen involving the cervical canal that measures up to 1.8 cm. Please consider neoplasm. When clinically appropriate, gynecology consultation is recommended. The endometrial stripe is not abnormally thickened on these images. Dictated by: Aristeo Aguirre M.D. on 09/04/2020 at 16:19 MDM Narrative Medical decision making narrative: Patient's pelvic exam is relatively unremarkable. Ultrasound calcification which is concerning for neoplasm. Patient says that she has had endometrial biopsies at least twice before. She has unknown prolapse. She is having increase pelvic pressure. Recommend discussing with her primary care provider pessary be needed. Discharge Plan Departure Patient Disposition: Home Clinical Impression: Pelvic pain Instructions: Chronic Pelvic Pain-Female Activity Restrictions/Additional Instructions: *You have been diagnosed with pelvic pain *What to do: At this time you do have a calcification in her uterus which should be biopsied. Please talk to your primary care doctor about Passery *Continue to take medications as directed-->SENT TO [facility] Meloxicam 15 mg once a day. Do not combine with any other NSAIDs such as ibuprofen Motrin Aleve Advil *Follow up with your primary care provider in 2-3 days *Return to ER if you should have increasing pain, vaginal bleeding, discharge fever or any new, worsening or concerning symptoms Prescriptions: New meloxicam 15 mg tablet 15 mg PO DAILY Qty: 30 RF: 0 No Action conjugated estrogens 0.625 mg/gram cream 1 applictn topical QPM Qty: 30 RF: 0 Referrals: Betsy Carrillo MD [Primary Care Provider] -
== END 2020-09-04 18:16 | disposition home or self-care (01) ==
PROVIDERS: Emergency Provider Emergency Medicine; PCP Family Medicine
DX: R10.2 Pelvic and perineal pain (principal)
CPT/HCPCS: 36415; 76830; 76856; 80053; 81003; 83690; 85025; 99284

== ENCOUNTER → 2020-09-23 16:03 | Outpatient (CLI) | payer OTHER, SELFPAY ==
[2020-09-23 17:45] LABS: COVID19 -Nasal RAPID Negative (Negative)
== END ==
PROVIDERS: PCP Family Medicine; Visit Provider Specialist
DX: Z01.812 Encounter for preprocedural laboratory examination (principal); Z20.822 Contact with and (suspected) exposure to COVID-19
CPT/HCPCS: 87635

== ENCOUNTER 2020-09-24 09:23 | Day surgery (SDC) | payer OTHER, SELFPAY ==
[2020-09-15 14:18] VITALS: BMI 23.3
--- NOTE | 2020-09-24 | PATH_ITS ---
[facility] Accession Number: [id number] . 01 Material submitted: . endocervix - ENDOCERVICAL AND ENDOMETRIAL CURETTINGS . 01 Clinical history: . SDC . 02 Diagnosis: Endocervical and Endometrial Curettings: Avulsed portions of squamous mucosa with focal cytologic atypia suggestive of, but not diagnostic of, low-grade squamous intraepithelial lesion / LENIN-1. Glandular elements, favor endocervical origin; negative for glandular dysplasia or malignancy. Please see comment. Small fragments of lower uterine segment; negative for glandular hyperplasia, cytologic atypia, or malignancy. V 09/28/2020 1819 Local . 02 Comment: Due to the scant nature of this biopsy, it may not be entirely school admissions representative of this patient's endocervix; additional sampling could be considered, if clinically appropriate. . Due to the scant nature of this biopsy, it may not be entirely school admissions representative of this patient's endometrium; additional sampling could be considered, if clinically appropriate. . 02 Electronically signed: . Roxanne Javier MD, Pathologist NPI- [id number] . 01 Gross description: . ENDOCERVICAL AND ENDOMETRIAL CURETTINGS: Received in formalin are minute fragments of mucoid and hemorrhagic material measuring 3.0 x 0.6 x 0.1 cm in aggregate. Submitted in toto in 1 cassette. /KESHAV 09/25/2020 0714 Local . 02 Pathologist provided ICD-10: N84.1 . 02 CPT . 977998 Performed at: 01 [facility] [address], [place], [place] [id number] MD Alan Arshad MD Phone: [phone] Performed at: 02 [facility] [id number] [place] [id number] MD Sammie Ugalde MD Phone: [phone]
[2020-09-24] MEDS: ACETAMINOPHEN 325 MG TABLET 975 MG PO (09:40)
[2020-09-24] MEDS: LACTATED RINGERS 1,000 ML 42 ML IV (09:42)
[2020-09-24 09:45] VITALS: BP 134/83; PULSE 60; RESP 16; TEMP 36.6; O2SAT 100; BMI 23.3
--- NOTE | 2020-09-24 10:00 | PM.PREOP ---
Pre-operative Note COVID-19 COVID-19 status: Negative Result date/Date tested (Pos, Neg/Pending): 09/23/20 Interval Note History & Physical reviewed/Exam performed by Physician: Yes Changes to H&P: No
--- NOTE | 2020-09-24 10:38 | SUR.OPER ---
Lithotomy on padded OR bed, head on pillow, arms secured on padded arm boards at <90 degrees abduction. Legs secured in padded yellow fins stirrups.
[2020-09-24 10:47] VITALS: BP 125/66; PULSE 55; RESP 18; TEMP 36.4; O2SAT 97
--- NOTE | 2020-09-24 10:48 | P.OP_ITS ---
Operative Date/Time/Diagnoses Date of procedure: 09/24/20 Time of procedure: 10:48 Pre-op diagnosis: Large endocervical polyp seen on ultrasound Post-op diagnosis: other (No polyp found on hysteroscopy D&C) Procedure & Clinicians Procedure: Hysteroscopy D&C Same procedure as scheduled: Yes Indications: Large endocervical polyp seen on ultrasound Surgeon: Eli Downs Click Yes if Unassisted: Yes Anesthesia Type: General Operative Notes Findings: Normal exam under anesthesia. Normal thin endometrium without abnormalities. Normal endocervix without any polyps seen. Closure Type: not applicable Specimen(s): other (Endometrial and endocervical curetting sent together) Estimated Blood Loss (mL): 1 Blood products transfused: none Procedure in detail: The patient was brought to the operating room where she underwent general anesthesia. She was placed in low stirrups She was prepped and draped in usual sterile fashion with pulsatile stockings in place and functional, warming in place. No antibiotics were indicated. A check system was reviewed with the staff in the room prior to beginning the case. Her bladder was drained with in and out catheter. A single-tooth tenaculum was placed on the anterior lip of the cervix and the uterus dilated to #8 Hegar dilator. The hysteroscope was placed into the uterus with a sorbitol solution running and under constant suction. An endometrial and endocervical curettage was performed. The cur ettings were sent to pathology. The patient went to recovery room in good condition counts of instruments and sponges were correct. The sorbitol solution I=O approximately 700 mL. Complications: none Post-operative Condition: stable Disposition: same day surgery Plan for aftercare: Home when awake and stable. Treatment and follow-up based on biopsy results off however doubt there is any concern.
[2020-09-24 10:52] VITALS: BP 123/69; PULSE 55; RESP 17; O2SAT 96
[2020-09-24 10:55] VITALS: BP 123/69; PULSE 57; RESP 14
[2020-09-24 10:57] VITALS: BP 124/67; PULSE 55; RESP 14; O2SAT 98
[2020-09-24] MEDS: OXYCODONE IR 5 MG TABLET PO (11:01)
[2020-09-24 11:34] VITALS: BP 129/72; PULSE 52; RESP 14; TEMP 36.3; O2SAT 100
== END 2020-09-24 11:45 | disposition home or self-care (01) ==
PROVIDERS: PCP Family Medicine; Referring Provider Specialist; Visit Provider Specialist
PROC: 0UDB8ZZ Extraction of Endometrium, Via Natural or Artificial Opening Endoscopic (ICD-10-PCS; CPT 58558; principal; 2020-09-24 10:45)
DX: R93.89 Abnormal findings on diagnostic imaging of other specified body structures (principal)
CPT/HCPCS: 58558; J1100; J1885; J2250; J2405; J2704

== ENCOUNTER → 2020-10-29 12:56 | Outpatient (CLI) | payer OTHER, SELFPAY ==
[2020-11-02 15:44] LABS: Fecal Immunochemical Test Negative (Negative)
== END ==
PROVIDERS: PCP Family Medicine; Referring Provider Family Medicine; Visit Provider Family Medicine
DX: Z12.11 Encounter for screening for malignant neoplasm of colon (principal)
CPT/HCPCS: 82274

== ENCOUNTER → 2021-03-09 15:29 | Outpatient (CLI) | payer OTHER, SELFPAY ==
--- NOTE | 2021-03-09 | DI.MG.S_ITS ---
BILATERAL DIGITAL SCREENING MAMMOGRAM 3D/2D WITH CAD: 03/09/2021 CLINICAL: Routine screening. Family history of breast cancer. Comparison is made to exams dated: 01/20/2020 mammogram, 10/08/2018 mammogram, and 08/31/2017 mammogram - [facility]. The tissue of both breasts is heterogeneously dense. This may lower the sensitivity of mammography. Current study was also evaluated with a Computer Aided Detection (CAD) system. There are benign post operative findings in both breasts. No significant masses, calcifications, or other findings are seen in either breast. There has been no significant interval change. IMPRESSION: BENIGN There is no mammographic evidence of malignancy. A 1 year screening mammogram is recommended. This exam was interpreted at Station ID: [id number]. NOTE: For mammograms, a report in lay terms will be sent to the patient. Approximately 15% of breast malignancies will not be visualized mammographically. In the management of a palpable breast mass, a negative mammogram must not discourage biopsy of a clinically suspicious lesion. Electronically Signed By: Alan hodges/roger:03/10/2021 09:36:46 letter sent: Normal Exam ACR BI-RADS Category 2: Benign Finding(s) 3342F
== END ==
PROVIDERS: PCP Family Medicine; Referring Provider Family Medicine; Visit Provider Family Medicine
DX: Z12.31 Encounter for screening mammogram for malignant neoplasm of breast (principal); Z80.3 Family history of malignant neoplasm of breast
CPT/HCPCS: 77063; 77067

== ENCOUNTER → 2021-06-13 15:12 | Outpatient (CLI) | payer OTHER, SELFPAY | PROVIDERS: PCP Family Medicine; Visit Provider Student in an Organized Health Care Education/Training Program | DX: R30.0 Dysuria (principal) | CPT/HCPCS: 87086 ==

== ENCOUNTER → 2021-08-19 11:38 | Outpatient (CLI) | payer OTHER, SELFPAY ==
[2021-08-19 12:26] LABS: Creatinine Urine Random 263.7 mg/dL
[2021-08-19 12:31] LABS: Microalbumi Creatinin Ratio Ur 3.7 ug/mg CR (<30)
[2021-08-19 13:25] LABS: Alanine Aminotransferase 17 IU/L (<35); Albumin 4.6 g/dL (3.5-5.0); Albumin Globulin Ratio 1.6 (1.0-2.8); Alkaline Phosphatase 58 U/L (38-126); Aspartate Aminotransferase 25 IU/L (14-36); BUN Creatinine Ratio 15.9 (6-22); Bilirubin Total 0.6 mg/dL (0.2-1.3); Blood Urea Nitrogen 14 mg/dL (7-17); Calcium 9.6 mg/dL (8.4-10.2); Carbon Dioxide 29 mmol/L (22-32); Chloride 104 mmol/L (98-107); Cholesterol 222 mg/dL (140-199); Estimated Glomerular Filt Rate > 60 mL/min (>60); Globulin 2.8 g/dL (1.7-4.1); Glucose 91 mg/dL (70-100); HDL Cholesterol 94 mg/dL (40-60); HEMOLYSIS < 15 (0-50); LDL Cholesterol Calculated 116 mg/dL (<100); Potassium 4.7 mmol/L (3.4-5.1); Sodium 137 mmol/L (137-145); Total Protein 7.4 g/dL (6.3-8.2); Triglycerides 59 mg/dL (35-150)
== END ==
PROVIDERS: PCP Family Medicine; Referring Provider Physician Assistant; Visit Provider Physician Assistant
DX: R03.0 Elevated blood-pressure reading, without diagnosis of hypertension (principal); Z13.220 Encounter for screening for lipoid disorders; Z13.6 Encounter for screening for cardiovascular disorders; Z82.49 Family history of ischemic heart disease and other diseases of the circulatory system
CPT/HCPCS: 36415; 80053; 80061; 82043; 82570

== ENCOUNTER → 2022-05-04 10:52 | Outpatient (CLI) | payer OTHER, SELFPAY ==
--- NOTE | 2022-05-04 | DI.MG.S_ITS ---
BILATERAL DIGITAL SCREENING MAMMOGRAM 3D/2D WITH CAD: 05/04/2022 CLINICAL: Routine screening. Family history of breast cancer. Comparison is made to exams dated: 03/09/2021 mammogram, 01/20/2020 mammogram, 10/08/2018 mammogram, and 08/31/2017 mammogram - [facility]. Both breasts are heterogeneously dense, which may obscure small masses (category c / 51-75% glandular tissue). Current study was also evaluated with a Computer Aided Detection (CAD) system. There are benign post operative findings in both breasts. No significant masses, calcifications, or other findings are seen in either breast. There has been no significant interval change. IMPRESSION: BENIGN There is no mammographic evidence of malignancy. A 1 year screening mammogram is recommended. This exam was interpreted at Station ID: [id number]. NOTE: For mammograms, a report in lay terms will be sent to the patient. Approximately 15% of breast malignancies will not be visualized mammographically. In the management of a palpable breast mass, a negative mammogram must not discourage biopsy of a clinically suspicious lesion. Electronically Signed By: Vincent hale/roger:05/04/2022 12:57:00 letter sent: Normal Exam ACR BI-RADS Category 2: Benign Finding(s) 3342F
== END ==
PROVIDERS: PCP Family Medicine; Referring Provider Family Medicine; Visit Provider Family Medicine
DX: Z12.31 Encounter for screening mammogram for malignant neoplasm of breast (principal); Z80.3 Family history of malignant neoplasm of breast
CPT/HCPCS: 77063; 77067

== ENCOUNTER → 2023-05-11 15:43 | Outpatient (CLI) | payer OTHER, SELFPAY ==
--- NOTE | 2023-05-11 15:45 | DI.MG.S_ITS ---
BILATERAL DIGITAL SCREENING MAMMOGRAM 3D/2D WITH CAD: 05/11/2023 CLINICAL: Routine screening. Family history of breast cancer. Comparison is made to exams dated: 05/04/2022 mammogram, 03/09/2021 mammogram, and 01/20/2020 mammogram - [facility]. Both breasts are heterogeneously dense, which may obscure small masses (category c / 51-75% glandular tissue). Current study was also evaluated with a Computer Aided Detection (CAD) system. There are benign post operative findings in both breasts. No significant masses, calcifications, or other findings are seen in either breast. There has been no significant interval change. IMPRESSION: BENIGN There is no mammographic evidence of malignancy. A 1 year screening mammogram is recommended. Based on the Tyrer Cuzick model (a risk assessment model) the patient's lifetime risk is 17.5% and her 10 year risk is 7.3%. According to the ACR, ACS, and NCCN guidelines, an annual breast MRI exam along with mammogram is recommended if the patient's lifetime risk is 20% or greater. This exam was interpreted at Station ID: [id number]. NOTE: For mammograms, a report in lay terms will be sent to the patient. Approximately 15% of breast malignancies will not be visualized mammographically. In the management of a palpable breast mass, a negative mammogram must not discourage biopsy of a clinically suspicious lesion. Electronically Signed By: Yane espinoza/roger:05/11/2023 18:01:58 letter sent: Normal Exam ACR BI-RADS Category 2: Benign Finding(s) 3342F
== END ==
PROVIDERS: PCP Family Medicine; Referring Provider Family Medicine; Visit Provider Family Medicine
DX: Z12.31 Encounter for screening mammogram for malignant neoplasm of breast (principal); Z80.3 Family history of malignant neoplasm of breast; R92.333 Mammographic heterogeneous density, bilateral breasts
CPT/HCPCS: 77063; 77067

== ENCOUNTER → 2024-05-30 | Outpatient (CLI) | payer OTHER, SELFPAY ==
--- NOTE | 2024-05-30 14:25 | DI.MG.S_ITS ---
MM screening mammo BI: 05/30/2024. BI-RADS: 1 CLINICAL: 63-year old female for bilateral screening mammogram. Tyrer-Cuzick lifetime risk of 17.9%. Current reported family history of breast cancer: mother. The patient had prior bilateral breast biopsies. PRIOR EXAMS 05/11/2023, 05/04/2022, 03/09/2021, 01/20/2020, 10/08/2018, 08/31/2017, 07/11/2016, 05/25/2015. MAMMOGRAPHY TECHNIQUE: 2D and 3D (tomosynthesis) digital mammographic views obtained, with additional images as needed for full coverage. Current study was also evaluated with a Computer Aided Detection (CAD) system. DENSITY C. The breasts are heterogeneously dense, which may obscure small masses. MAMMOGRAPHY FINDINGS Bilateral: No suspicious mass, asymmetry, microcalcification, or other abnormality seen. No significant change from comparison. IMPRESSION: * No evidence of malignancy. RECOMMENDATIONS Bilateral * Annual screening mammography. OVERALL ASSESSMENT CATEGORY BI-RADS-1: Negative. The [employer] recommends annual screening mammography beginning at age 40 for women with average risk of breast cancer. ELECTRONICALLY SIGNED: Kaya Choudhury M.D. on 06/02/2024 at 12:13:34 PM PT Interpreting Station ID: [id number]
== END ==
PROVIDERS: PCP Family Medicine; Referring Provider Family Medicine; Visit Provider Family Medicine
DX: Z12.31 Encounter for screening mammogram for malignant neoplasm of breast (principal); Z80.3 Family history of malignant neoplasm of breast; R92.333 Mammographic heterogeneous density, bilateral breasts
CPT/HCPCS: 77063; 77067